=== PATIENT | male | born 1950 | race Caucasian/White ===

== ENCOUNTER 2022-01-28 18:16 | Emergency (ER) | payer MEDICARE, BC, OTHER ==
[~2022-01-28] VITALS: Ht 188 cm; Wt 102.3 kg
[~2022-01-28 18:16] MED LIST: LOSARTAN POT100 MG PO
[2022-01-28 18:32] VITALS: BP 128/78
[2022-01-28 19:00] VITALS: BP 133/69
[2022-01-28 19:52] LABS: HEMATOCRIT 43.3 % (39.0-50.0); HEMOGLOBIN 14.5 g/dl (14.0-18.0); MEAN CELL VOLUME 91.4 fL CALC (80.0-100.0); MEAN CORPUSCULAR HGB 30.6 pG CALC (26.0-32.0); MEAN CORPUSCULAR HGB CONC 33.5 g/dL CAL (32.0-36.0); NEUT# 2.38 thou/uL (1.82-7.42); RED BLOOD COUNT 4.74 mill/uL (4.70-6.10); RED CELL DISTRI WIDTH 13.4 % (11.5-15.5)
[2022-01-28 20:01] LABS: URINE BILIRUBIN - DIPSTICK NEGATIVE (NEGATIVE); URINE BLOOD DIPSTICK NEGATIVE (NEGATIVE); URINE COLOR YELLOW; URINE GLUCOSE - DIPSTICK NEGATIVE (NEGATIVE); URINE KETONE NEGATIVE (NEGATIVE); URINE LEUK ESTERASE NEGATIVE (NEGATIVE); URINE PROTEIN - DIPSTICK NEGATIVE (NEG-TRACE); URINE SPECIFIC GRAVITY 1.025; URINE UROBILINOGEN - DIPSTICK 0.2 E.U./dL (0.2)
[2022-01-28 20:09] LABS: URINE NITRITE - DIPSTICK NEGATIVE (Negative)
[2022-01-28 20:27] LABS: ALBUMIN 4.1 g/dL (3.2-5.0); ALKALINE PHOSPHATASE 59 u/l (38-126); ANION GAP 11 (6-22 (CALC)); BUN 12 mg/dL (8-23); BUN/CREATININE RATIO 14 (12-20 (CALC)); CARBON DIOXIDE 28 mmol/l (22-30); CHLORIDE 104 mmol/l (95-108); CREATININE 0.9 mg/dL (0.7-1.3); ETHYL ALCOHOL 0 mg/dl (0-30); GFR > 60 ML/MIN (>=60 (CALC)); GFR FOR AFR.AMER. > 60 ML/MIN (>=60 (CALC)); SGOT/AST 28 u/l (19-48); SODIUM 139 mmol/l (137-146); TOTAL PROTEIN 7.1 g/dL (6.3-8.2)
[2022-01-28 20:28] LABS: BILIRUBIN, TOTAL 0.6 mg/dL (0.0-1.4)
[2022-01-28 21:12] VITALS: BP 133/73
[2022-01-28 21:20] VITALS: BP 133/73
[2022-01-28] MEDS ORDERED: FINASTERIDE5 MG PO (21:36)
[2022-01-28] MEDS ORDERED: IMIPRAM HCL25 M1 PO (21:37)
[2022-01-28] MEDS ORDERED: LAMICTAL25 M1 PO (21:37)
[2022-01-28] MEDS ORDERED: OLANZAPINE2.5 MG PO (21:38)
[2022-01-28] MEDS ORDERED: LORAZEPAM0.5 MG PO (21:38)
[2022-01-28] MEDS ORDERED: QUETIAPINE FUMA25 MG PO (21:39)
[2022-01-28] MEDS ORDERED: TERAZOSIN5 MG PO (21:39)
[2022-01-28] MEDS ORDERED: EZALLOR SPRINKLE5 MG (21:39)
[2022-01-28] MEDS ORDERED: TRAZODONE50 MG PO (21:40)
[2022-01-28] MEDS ORDERED: VENLAFAXINE150 M1 PO (21:40)
[2022-01-28] MEDS ORDERED: VENLAFAXINE HCL75 M1 PO (21:41)
== END 2022-01-28 21:24 ==
LOC: ED 18:16
PROVIDERS: Family Medicine
DX: S16.1XXA Strain of muscle, fascia and tendon at neck level, initial encounter (principal); S39.012A Strain of muscle, fascia and tendon of lower back, initial encounter; I10 Essential (primary) hypertension; F31.9 Bipolar disorder, unspecified; F03.90 Unspecified dementia, unspecified severity, without behavioral disturbance, psychotic disturbance, mood disturbance, and anxiety; W18.30XA Fall on same level, unspecified, initial encounter; Y92.099 Unspecified place in other non-institutional residence as the place of occurrence of the external cause

== ENCOUNTER 2022-06-09 08:17 | Day surgery (SDC) | payer MEDICARE, BC, OTHER ==
[~2022-06-09] VITALS: Ht 188 cm; Wt 90.7 kg
[~2022-06-09 08:17] MED LIST changes: +EZALLOR SPRINKLE5 MG; +FINASTERIDE5 MG PO; +IMIPRAM HCL25 M1 PO; +LAMICTAL25 M1 PO; +LORAZEPAM0.5 MG PO; +OLANZAPINE2.5 MG PO; +QUETIAPINE FUMA25 MG PO; +TERAZOSIN5 MG PO; +TRAZODONE50 MG PO; +VENLAFAXINE HCL75 M1 PO; +VENLAFAXINE150 M1 PO
[2022-06-09 10:40] VITALS: BP 127/87
== END 2022-06-09 10:33 | disposition home or self-care (01) ==
LOC: ORM 08:17
PROVIDERS: ATTEND Physical Medicine & Rehabilitation
DX: M47.816 Spondylosis without myelopathy or radiculopathy, lumbar region (principal); G89.4 Chronic pain syndrome; M62.838 Other muscle spasm; M50.30 Other cervical disc degeneration, unspecified cervical region; M51.36 Other intervertebral disc degeneration, lumbar region

== ENCOUNTER 2022-09-01 07:19 | Day surgery (SDC) | payer MEDICARE, BC, OTHER ==
[~2022-09-01] VITALS: Ht 188 cm; Wt 108.9 kg
[2022-09-01] MEDS ORDERED: DOK100 MG PO (08:00)
[2022-09-01] MEDS ORDERED: VITAMIN D325 MCG PO (08:01)
[2022-09-01] MEDS ORDERED: PAIN RELIEF325 MG PO (08:04)
[2022-09-01] MEDS ORDERED: ENULOSE PO (08:07)
[2022-09-01] MEDS ORDERED: FAMOTIDINE20 M1 PO (08:08)
[2022-09-01] MEDS ORDERED: METHOCARBAMOL500 MG PO (08:09)
[2022-09-01 10:19] VITALS: BP 155/99
== END 2022-09-01 10:20 | disposition home or self-care (01) ==
LOC: ORM 07:19
PROVIDERS: ATTEND Physical Medicine & Rehabilitation
DX: M47.816 Spondylosis without myelopathy or radiculopathy, lumbar region (principal)

== ENCOUNTER 2022-11-24 06:49 | Day surgery (SDC) | payer MEDICARE, BC, OTHER ==
[~2022-11-24] VITALS: Ht 188 cm; Wt 106.6 kg
[~2022-11-24 06:49] MED LIST changes: +DOK100 MG PO; +ENULOSE PO; +FAMOTIDINE20 M1 PO; +IMIPRAMINE HYDR50 MG PO; +METHOCARBAMOL500 MG PO; +PAIN RELIEF325 MG PO; +VITAMIN D325 MCG PO
[2022-11-24] MEDS ORDERED: CRESTOR10 MG PO (07:30)
[2022-11-24 09:28] VITALS: BP 161/102
== END 2022-11-24 09:40 | disposition home or self-care (01) ==
LOC: ORM 06:49 → ENDO 06:49 → ORM 08:00
PROVIDERS: ATTEND Physical Medicine & Rehabilitation Pain Medicine
DX: M47.816 Spondylosis without myelopathy or radiculopathy, lumbar region (principal)
CPT/HCPCS: J1100; J3490

== ENCOUNTER 2023-01-02 09:19 | Emergency (ER) | payer MEDICARE, BC, OTHER ==
[~2023-01-02] VITALS: Ht 188 cm; Wt 106.6 kg
[~2023-01-02 09:19] MED LIST changes: +CRESTOR10 MG PO
[2023-01-02 09:27] VITALS: BP 126/90
[2023-01-02 09:30] VITALS: BP 147/94
[2023-01-02 09:49] VITALS: BP 140/84
[2023-01-02 10:00] VITALS: BP 141/77
[2023-01-02 11:45] VITALS: BP 141/77
[2023-01-02] MEDS ORDERED: TRAMADOL HYDROC50 M1 PO (11:45)
[2023-01-02] MEDS ORDERED: MOTRIN400 MG/TAB PO (11:47)
[2023-01-02] MEDS ORDERED: TYLENOL500 MG PO (11:47)
== END 2023-01-02 11:54 | disposition home or self-care (01) ==
LOC: ED 09:19
DX: M54.50 Low back pain, unspecified (principal); I10 Essential (primary) hypertension; F31.9 Bipolar disorder, unspecified; F03.90 Unspecified dementia, unspecified severity, without behavioral disturbance, psychotic disturbance, mood disturbance, and anxiety

== ENCOUNTER 2023-07-04 17:07 | Observation (INO) | payer MEDICARE, BC, OTHER ==
[2023-07-04] VITALS (18 sets, daily range): BP systolic 112–151; BP diastolic 66–90
[~2023-07-04] VITALS: Ht 188 cm; Wt 109.6 kg
[~2023-07-04 17:07] MED LIST changes: +MOTRIN400 MG/TAB PO; +TRAMADOL HYDROC50 M1 PO; +TYLENOL500 MG PO
[2023-07-04 17:32] LABS: BASO% 0.8 % (0-3); EOS% 7.6 % (0-8); HEMATOCRIT 40.8 % (39.0-50.0); HEMOGLOBIN 13.5 g/dl (14.0-18.0); IMMATURE GRANULOCYTES 0.2 % (0.0-5.0); LYMPH% 37.4 % (15-41); MEAN CELL VOLUME 90.1 fL CALC (80.0-100.0); MEAN CORPUSCULAR HGB 29.8 pG CALC (26.0-32.0); MEAN CORPUSCULAR HGB CONC 33.1 g/dL CAL (32.0-36.0); MONO% 11.2 % (2-13); NEUT# 2.19 thou/uL (1.82-7.42); NEUT% 42.8 % (42-76); RED BLOOD COUNT 4.53 mill/uL (4.70-6.10); RED CELL DISTRI WIDTH 12.9 % (11.5-15.5)
[2023-07-04 17:42] LABS: ALKALINE PHOSPHATASE 55 u/l (38-126); ANION GAP 11 (6-22 (CALC)); BUN 16 mg/dL (8-23); BUN/CREATININE RATIO 16 (12-20 (CALC)); CARBON DIOXIDE 26 mmol/l (22-30); CHLORIDE 104 mmol/l (95-108); GFR FOR AFR.AMER. > 60 ML/MIN (>=60 (CALC)); GFR OTHER RACES > 60 ML/MIN (>=60 (CALC)); LIPASE 28 u/l (23-300); POTASSIUM 3.8 mmol/l (3.5-5.1); SGOT/AST 26 u/l (19-48); SODIUM 138 mmol/l (137-146); TOTAL PROTEIN 6.9 g/dL (6.3-8.2)
[2023-07-04 17:43] LABS: BILIRUBIN, TOTAL 0.3 mg/dL (0.2-1.3)
[2023-07-04] MEDS ORDERED: COLACE100 MG PO (17:48)
[2023-07-04] MEDS ORDERED: VITAMIN D-32000 UNI1 PO (17:57)
[2023-07-05] VITALS (7 sets, daily range): BP systolic 144–167; BP diastolic 64–95
[2023-07-05 09:18] LABS: HEMOGLOBIN 13.9 g/dl (14.0-18.0); MEAN CELL VOLUME 90.5 fL CALC (80.0-100.0); MEAN CORPUSCULAR HGB CONC 33.1 g/dL CAL (32.0-36.0); RED BLOOD COUNT 4.64 mill/uL (4.70-6.10); RED CELL DISTRI WIDTH 12.9 % (11.5-15.5)
[2023-07-05 09:39] LABS: ANION GAP 9 (6-22 (CALC)); BUN 19 mg/dL (8-23); BUN/CREATININE RATIO 17 (12-20 (CALC)); CALCULATED LDLCHOLESTEROL 80 mg/dL (62-129 (CALC)); CARBON DIOXIDE 30 mmol/l (22-30); CHLORIDE 105 mmol/l (95-108); CHOLESTEROL HDL RATIO 3.8 (<4.4 (CALC)); CREATININE 1.2 mg/dL (0.7-1.3); GFR FOR AFR.AMER. > 60 ML/MIN (>=60 (CALC)); GFR OTHER RACES 59 ML/MIN (>=60 (CALC)); HDL CHOLESTEROL 44 mg/dL (39.0-59.0); MAGNESIUM 1.9 mg/dL (1.6-2.3); SODIUM 140 mmol/l (137-146); TOTAL CHOLESTEROL 167 mg/dl (0-199); TOTAL TRIGLYCERIDES 217 mg/dl (0-149); VLDL CHOLESTROL 43 mg/dl (0-38 (CALC))
[2023-07-06 00:11] VITALS: BP 143/80
[2023-07-06 04:07] VITALS: BP 154/91
[2023-07-06 05:53] LABS: BASO% 0.7 % (0-3); EOS% 7.8 % (0-8); HEMATOCRIT 41.6 % (39.0-50.0); IMMATURE GRANULOCYTES 0.2 % (0.0-5.0); LYMPH% 39.8 % (15-41); MEAN CELL VOLUME 90.8 fL CALC (80.0-100.0); MEAN CORPUSCULAR HGB 30.6 pG CALC (26.0-32.0); MEAN CORPUSCULAR HGB CONC 33.7 g/dL CAL (32.0-36.0); MONO% 11.6 % (2-13); NEUT# 2.4 thou/uL (1.82-7.42); NEUT% 39.9 % (42-76); RED BLOOD COUNT 4.58 mill/uL (4.70-6.10); RED CELL DISTRI WIDTH 12.9 % (11.5-15.5)
[2023-07-06 06:18] LABS: ALBUMIN 3.9 g/dL (3.2-5.0); ALKALINE PHOSPHATASE 62 u/l (38-126); ANION GAP 10 (6-22 (CALC)); BUN 16 mg/dL (8-23); BUN/CREATININE RATIO 18 (12-20 (CALC)); CARBON DIOXIDE 28 mmol/l (22-30); CHLORIDE 104 mmol/l (95-108); CREATININE 0.9 mg/dL (0.7-1.3); GFR FOR AFR.AMER. > 60 ML/MIN (>=60 (CALC)); GFR OTHER RACES > 60 ML/MIN (>=60 (CALC)); POTASSIUM 3.4 mmol/l (3.5-5.1); SGOT/AST 33 u/l (19-48); SODIUM 139 mmol/l (137-146)
[2023-07-06 06:19] LABS: BILIRUBIN, TOTAL 0.5 mg/dL (0.2-1.3)
[2023-07-06 07:55] VITALS: BP 170/91
[2023-07-06 11:25] VITALS: BP 145/86
== END 2023-07-06 12:29 ==
LOC: ED 17:07 → ED-I 18:25 → ED 19:06 → MS2 19:07
PROVIDERS: Family Medicine; Nurse Practitioner Family; ADMIT Student in an Organized Health Care Education/Training Program; ATTEND Student in an Organized Health Care Education/Training Program
DX: R07.9 Chest pain, unspecified (principal); H53.8 Other visual disturbances; I10 Essential (primary) hypertension; F07.81 Postconcussional syndrome; G20 Parkinson's disease; F02.80 Dementia in other diseases classified elsewhere, unspecified severity, without behavioral disturbance, psychotic disturbance, mood disturbance, and anxiety; F31.9 Bipolar disorder, unspecified
CPT/HCPCS: J1650